=== PATIENT | male | born 1990 | race Caucasian/White ===

== ENCOUNTER 2019-03-13 11:56 | Emergency (ER) | payer MEDICAID ==
[~2019-03-13] VITALS: Ht 182.9 cm; Wt 73.0 kg
[2019-03-13 12:06] VITALS: BP 124/85
[2019-03-13 12:39] LABS: BASOPHILS # (AUTO) 0.04 x10^3/uL (0-0.1); BASOPHILS % (AUTO) 0 % (0-1); EOSINOPHILS % (AUTO) 1 % (1-7); LYMPHOCYTES % (AUTO) 19 % (22-44); MD NO; MEAN CORPUSCULAR HEMOGLOBIN 27.6 pg (27.5-34.5); MEAN CORPUSCULAR VOLUME 83.6 fL (81-97); MEAN PLATELET VOLUME 7.2 fL (7.4-10.4); MONOCYTES # (AUTO) 0.85 x10^3/uL (0.2-0.8); MONOCYTES % (AUTO) 8 % (2-9); NEUTROPHILS # (AUTO) 7.88 x10^3/uL (1.8-6.8); NEUTROPHILS % (AUTO) 72 % (42-75); PLATELET COUNT 312 x10^3/uL (130-400); RED BLOOD COUNT 4.88 x10^6/uL (4.38-5.82); RED CELL DISTRIBUTION WIDTH 14.2 % (9.4-14.8)
--- NOTE | 2019-03-13 12:46 | NUR ---
PATIENT BROUGHT BACK FORM TRIAGE WITH CHIEF COMPLAINT OF RIGHT ANKLE PAIN FOR ONE DAY. SWELLING PRESENT WITH TINGLING. THE PATIENT IS ALERT, ORIENTED, WARM & DRY.
--- NOTE | 2019-03-13 14:46 | NUR ---
DISCHARGE INSTRUCTIONS REVIEWED
--- NOTE | 2019-03-13 15:00 | NUR ---
DISCHARGE INSTRUCTIONS REVIEWED, NO QUESTIONS
== END 2019-03-13 15:02 | disposition home or self-care (01) ==
LOC: ED 14:05
DX: L03.115 Cellulitis of right lower limb (principal); M25.571 Pain in right ankle and joints of right foot
CPT/HCPCS: 36415; 84550; 85025; 99284